=== PATIENT | female | born 1965 | race Caucasian/White ===

== ENCOUNTER 2017-03-29 14:20 | Emergency (ER) | payer OTHER ==
[2017-03-29] MEDS ORDERED: Proparacaine 0.5% Opth 15 ML BOT ONE (15:16)
[2017-03-29] MEDS ORDERED: Fluorescein Opthalmic Strip ONE (15:16)
--- NOTE | 2017-03-29 15:22 | CT ---
CT FACE NONCONTRAST: Date: 03/29/17 HISTORY: Right facial injury. FINDINGS: The mandible, globes, and zygomatic arches are intact. No displaced fractures are apparent. Visualize d paranasal sinuses remain well aerated. IMPRESSION: No significant abnormalities are demonstrated. POS: H
--- NOTE | 2017-03-31 15:31 | EKG ---
Test Reason : SYNCOPE Blood Pressure : / mmHG Vent. Rate : 078 BPM Atrial Rate : 078 BPM P-R Int : 160 ms QRS Dur : 078 ms QT Int : 380 ms P-R-T Axes : 065 060 024 degrees QTc Int : 433 ms Normal sinus rhythm with sinus arrhythmia Nonspecific ST and T wave abnormality Abnormal ECG Confirmed by YOLANDA NOEL, ADI ([id number]), movie editor RELL KERR ([id number]) on 03/31/2017 3:31:08 PM Referred By: DR ALLRED Confirmed By:ADI GUERRERO MD
== END 2017-03-29 15:50 | disposition home or self-care (01) ==
LOC: ERS 14:20
DX: H11.31 Conjunctival hemorrhage, right eye (principal); R55 Syncope and collapse; F32.9 Major depressive disorder, single episode, unspecified; F17.210 Nicotine dependence, cigarettes, uncomplicated
CPT/HCPCS: 70486; 93005

== ENCOUNTER 2017-10-11 11:46 | Outpatient (CLI) | payer BC | END 2017-10-11 11:47 | disposition home or self-care (01) | LOC: BICRAD 11:46 | PROVIDERS: ATTEND Physician Assistant | DX: R05 Cough (principal) | CPT/HCPCS: 36415; 71046; 85025 ==

== ENCOUNTER 2018-12-16 06:56 | Outpatient (CLI) | payer BC ==
--- NOTE | 2018-12-16 10:29 | ULT ---
PELVIC ULTRASOUND: TECHNIQUE: Transabdominal and endovaginal imaging of the pelvis is performed. FINDINGS: Uterus is identified, without myometrial masses. Uterus measures 5.6 x 3.3 x 4.8 cm. Endometrium abernathy s a homogeneous echotexture measuring 0.4 cm. The left ovary has a normal echotexture measuring 1.4 x 1.7 x 0.9 cm. Right ovary is not appreciated. No masses or fluid in the right adnexa. IMPRESSION: Unremarkable pelvic ultrasound. POS: TIAN
== END 2018-12-16 06:57 | disposition home or self-care (01) ==
LOC: BICULT 06:56
PROVIDERS: ATTEND Physician Assistant
DX: R10.2 Pelvic and perineal pain (principal)
CPT/HCPCS: 76856

== ENCOUNTER 2018-12-26 07:34 | Outpatient (CLI) | payer BC ==
--- NOTE | 2018-12-26 11:29 | CT ---
CT CHEST AND ABDOMEN AND PELVIS WITH CONTRAST: Date: 12/26/18 Multiplanar reconstruction. INDICATION: Disease of anus, rectum. Recent colonoscopy revealed malignancy according to history given by jerome ace. FINDINGS: CT CHEST: The lung amezquita are clear of infiltrate. No effusion. Review of the lung amezquita reveals scattered nonspecific pulmonary nodules. On the right, 5 mm nodule in the right apical region, image 14, axial. 3 mm nodule right upper lobe, image 20. 4 mm nodule right lower lobe, image 35. 4 mm nodule laterally on right, image 40. 5 mm nodule, image 42. On the left, small 4 mm nodule posterior left lower lobe, image 36. The mediastinum is unremarkable. No adenopathy. Thyroid unremarkable. Osseous structures unremarkable . Axilla unremarkable. IMPRESSION: There are numerous nonspecific pulmonary nodules. Recommend follow-up noncontrast CT chest in 6 month s to assess stability. CT ABDOMEN AND PELVIS: Tiny cystic lesion of the anterior superior liver measuring in the 5-6 mm range. Liver, spleen, and p ancreas otherwise unremarkable. Stomach and duodenum unremarkable. Adrenal glands normal. Kidneys unremarkable. Small bowel loops appear normal. Colon unremarkable. There are scattered diverticula in the sigmoid and mild mural thickening, althoug h the sigmoid is poorly distended and evaluation is suboptimal. Aorta is normal caliber. No adenopathy or free fluid. Images through the pelvis show unremarkable uterus and adnexa. The urinary bladder is minimally diste nded. Osseous structures unremarkable. IMPRESSION: Unremarkable CT abdomen and pelvis. POS: TPC
== END 2018-12-26 07:35 | disposition home or self-care (01) ==
LOC: CT 07:34
PROVIDERS: ATTEND Internal Medicine
DX: K62.89 Other specified diseases of anus and rectum (principal); R91.8 Other nonspecific abnormal finding of lung field
CPT/HCPCS: 71260; 74177

== ENCOUNTER 2019-01-10 13:15 | Outpatient (CLI) | payer BC ==
[~2019-01-10 13:15] MED LIST: Gadobenate Dimeglumine 529 MG/1 ML (20ML VIAL) ONE
--- NOTE | 2019-01-13 11:13 | MRI ---
MRI PELVIS WITHOUT AND WITH CONTRAST: Date: 01/10/19 HISTORY: Rectal cancer. TECHNIQUE: Multiplanar, multisequence MR images were obtained of the pelvis without and with IV contrast. FINDINGS: There is a circumferential mass in the rectum measuring approximately 4.4 cm in length. This is appro ximately 5.0 cm from the anal verge. This mass appears full thickness within the rectal wall and ther e is a small amount of invasion in the left perirectal fat. This extension is approximately 1-2 mm. T he mass does not invade or involve the mesorectal fascia. The closest margin of the tumor to the meso rectal fascia is along the posterior aspect in the presacral space, but a fat plane is still present between the sacrum and the mass. Three small lymph nodes are seen in the perirectal fat on the left a nd one lymph node is seen on the right. The largest lymph node on the left measures 9 mm in size. Scattered diverticula are seen in the colon. No marrow signal abnormality is present. IMPRESSION: Rectal cancer as above. This appears to be a T3b, N2a rectal cancer. POS: TPC
== END 2019-01-10 13:16 | disposition home or self-care (01) ==
LOC: SCSMRI 13:15
PROVIDERS: ATTEND Specialist
DX: C20 Malignant neoplasm of rectum (principal)
CPT/HCPCS: 72197; A9577

== ENCOUNTER 2019-01-27 08:11 | Day surgery (SDC) | payer BC ==
[2019-01-24 09:31] VITALS: BMI 21.6
[2019-01-27] MEDS ORDERED: Ketorolac Tromethamine 30 MG/ML VIAL ONE (08:35)
[2019-01-27 08:54] LABS: #Basophils 0.1 thou/uL (0.0-0.2); #Eosinphils 0.4 thou/uL (0.0-0.7); #Lymphocytes 2.1 thou/uL (1.20-3.40); #Monocytes 0.5 thou/uL (0.11-0.59); #Neutrophils 4.6 thou/uL (1.40-6.50); %Eosinophils 5.5 % (0.0-10.0); %Lymphocytes 27.4 % (21.0-51.0); %Monocytes 5.9 % (0.0-10.0); %Neutrophils 60.2 % (42.0-75.0); Hemoglobin 14.2 g/dL (12.0-16.0); Mean Corpuscular HGB CONC 33.9 g/dL (32.0-36.0); Mean Corpuscular Hemoglobin 32.5 pg (27.0-31.0); Mean Corpuscular Volume 95.9 fL (78.0-98.0); Mean Platelet Volume 6.6 fL (7.4-10.4); Platelet Count 258 thou/uL (130-400); RBC Distribution Width 11.5 % (11.5-14.5); Red Blood Cell (RBC) Count 4.37 mill/uL (4.20-5.40); White Blood Cell (WBC) Count 7.6 thou/uL (4.8-10.8)
[2019-01-27] MEDS ORDERED: Scopolamine 1.5 mg/72 hour Patch ONE (09:10)
[2019-01-27 09:15] LABS: Anion Gap 10 mmol/L (10-20); BUN (Urea Nitrogen) 9 mg/dL (9.8-20.1); Calc. Creatinine Clearance 82 mL/min (70-130); Calcium 9.9 mg/dL (7.8-10.44); Carbon Dioxide 24 mmol/L (22-29); Chloride 110 mmol/L (98-107); Estimated GFR-MDRD 90; Glucose 102 mg/dL (70-105); Sodium 140 mmol/L (136-145)
[2019-01-27] MEDS ORDERED: Ondansetron PF 4 MG/2 ML Vial ONE (09:44)
[2019-01-27] MEDS ORDERED: PHENYLEPHRINE-NS 100 MCG/ML 10 ML SYRINGE ONE (09:44)
[2019-01-27] MEDS ORDERED: PROPOFOL 200 MG/20 ML VIAL ONE (09:44)
[2019-01-27] MEDS ORDERED: Glycopyrrolate 0.2 MG/ML 5 ML SYRINGE ONE (09:44)
[2019-01-27] MEDS ORDERED: Lidocaine 1% w/Epinephrine 1:100K 20 ML VIAL ONE (10:38)
[2019-01-27] MEDS ORDERED: Bupivacaine 0.25% HCL 30 ML VIAL ONE (10:38)
[2019-01-27] MEDS ORDERED: Midazolam HCl 2 mg/2 ml Vial ONE (10:55)
[2019-01-27] MEDS ORDERED: Fentanyl 100 MCG/2 ML VIAL ONE (10:55)
--- NOTE | 2019-01-27 12:45 | RAD ---
XR Chest 1 View Portable History: MediPort placement Comparison: Radiograph 2005 Findings: Port catheter is in place with tip at the inferior SVC. No pneumothorax. Mild scarring in the lung bases. Impression: Uncomplicated port catheter placement.
--- NOTE | 2019-01-27 16:22 | OP ---
DATE OF PROCEDURE: 01/27/2019 PREOPERATIVE DIAGNOSIS: Rectal cancer. POSTOPERATIVE DIAGNOSIS: Rectal cancer. OPERATION PERFORMED: Placement of right subclavian low-profile power compatible MediPort. ANESTHESIA: General with laryngeal mask airway. INDICATIONS: The patient is a 53-year-old white female. She is recently diagnosed with rectal cancer. She appears to have locally advanced cancer, and therefore, chemotherapy and radiation has been recommended. MediPort placement is recommended for chemotherapy administration. DESCRIPTION OF OPERATION: Informed consent was obtained. The patient was taken to the operating room where total intravenous anesthesia was obtained with the patient in supine position. Right periclavicular area was prepped with ChloraPrep and draped in sterile fashion. Local anesthetic was infiltrated and a large-gauge needle was passed under the clavicle in the subclavian vein. Guidewire was passed through the needle and fluoroscopically confirmed to enter the superior vena cava. Additional local anesthetic was infiltrated and transverse incision was created based on needle insertion site. A subcutaneous pocket was dissected inferiorly. Introducer dilator was passed over the guidewire under fluoroscopic guidance. The guidewire and dilator were removed, and the catheter was passed through the introducer. The tip of the catheter was positioned at the atriocaval junction and the catheter was trimmed to the appropriate length and secured to the locking hub of the MediPort. The port was then placed in the subcutaneous pocket where it was secured to the pectoral fascia with 2 interrupted sutures of 3-0 Prolene. The incision was then closed in layers with 3-0 and 4-0 Monocryl. Additional local anesthetic was infiltrated. The port was cannulated with a Ward needle and it aspirated blood freely and was flushed with heparinized saline. Dermabond was placed externally on the skin incision. There were no complications. Blood loss was negligible. The patient tolerated the procedure well and was taken to recovery room in stable condition. FINDINGS: A right subclavian low-profile port was placed uneventfully. The port site was selected due to her body habitus. There was no blood loss and no complications during the procedure. Fluoroscopy was used throughout the procedure. Job ID: [id number]
== END 2019-01-27 13:35 | disposition home or self-care (01) ==
LOC: SDC 08:11
PROVIDERS: ATTEND Specialist
PROC: 02HV33Z Insertion of Infusion Device into Superior Vena Cava, Percutaneous Approach (ICD-10-PCS; principal; 2019-01-27)
DX: C20 Malignant neoplasm of rectum (principal); Z79.899 Other long term (current) drug therapy; Z88.2 Allergy status to sulfonamides; Z88.8 Allergy status to other drugs, medicaments and biological substances
CPT/HCPCS: 71045; 80048; 85025; C1788; J0131; J0690; J1642; J1885; J2250; J2405; J2704; J3010; S0020

== ENCOUNTER 2019-09-11 05:18 | Outpatient (CLI) | payer BC, OTHER ==
[2019-09-11 11:26] LABS: Hemoglobin 12.8 g/dL (12.0-16.0); Mean Corpuscular HGB CONC 34.4 g/dL (32.0-36.0); Mean Corpuscular Hemoglobin 36.2 pg (27.0-31.0); Mean Platelet Volume 6.7 fL (7.4-10.4); Platelet Count 173 thou/uL (130-400); RBC Distribution Width 12.7 % (11.5-14.5); Red Blood Cell (RBC) Count 3.54 mill/uL (4.20-5.40); White Blood Cell (WBC) Count 3.1 thou/uL (4.8-10.8)
[2019-09-11 11:45] LABS: Hemoglobin A1c 5.3 % (4.0-6.0)
[2019-09-11 12:11] LABS: Anion Gap 13 mmol/L (10-20); BUN (Urea Nitrogen) 9 mg/dL (9.8-20.1); Calc. Creatinine Clearance 0 mL/min (70-130); Calcium 9.8 mg/dL (7.8-10.44); Carbon Dioxide 28 mmol/L (22-29); Chloride 103 mmol/L (98-107); Estimated GFR-MDRD 80; Glucose 109 mg/dL (70-105); Potassium 3.5 mmol/L (3.5-5.1); Sodium 140 mmol/L (136-145)
[2019-09-12 12:51] LABS: SARS-CoV-2 MS2 Positive; SARS-CoV-2 N Gene Negative; SARS-CoV-2 S Gene Negative; SARS-CoV-2 orf1ab Negative
== END 2019-09-11 05:19 | disposition home or self-care (01) ==
LOC: LABBT 05:18
PROVIDERS: ATTEND Specialist
DX: Z01.812 Encounter for preprocedural laboratory examination (principal); Z11.59 Encounter for screening for other viral diseases; C20 Malignant neoplasm of rectum
CPT/HCPCS: 80048; 83036; 85027; 87635; U0003

== ENCOUNTER 2019-09-11 10:30 | Inpatient (IN) | payer BC ==
[2019-09-15] MEDS ORDERED: Meperidine HCl/PF 25 MG/ML VIAL SLOW IVP PRN (10:25)
[2019-09-15] MEDS ORDERED: Ondansetron HCl/PF 4 MG/2 ML Vial IVP PRN ×2 (10:25→17:05)
[2019-09-15] MEDS ORDERED: HYDROmorphone 2 MG/ML VIAL SLOW IVP PRN (10:25)
[2019-09-15] MEDS ORDERED: Promethazine HCl 25 MG/ML VIAL SLOW IVP PRN ×2 (10:25→17:05)
[2019-09-15] MEDS ORDERED: Promethazine HCl 25 MG/ML VIAL IM PRN ×3 (10:25→20:47)
[2019-09-15] MEDS ORDERED: Acetaminophen 500 MG TAB ONE (10:59)
[2019-09-15] MEDS ORDERED: Ketorolac Tromethamine 30 MG/ML VIAL ONE (10:59)
[2019-09-15] MEDS ORDERED: Gabapentin 300 MG CAP ONE (11:01)
[2019-09-15] MEDS ORDERED: Famotidine/PF 20 mg/2ml Vial ONE ×2 (11:01→11:50)
[2019-09-15] MEDS ORDERED: Dexamethasone 4 mg/ml Vial ONE (11:10)
[2019-09-15] MEDS ORDERED: Fentanyl 100 MCG/2 ML VIAL ONE ×4 (11:10→18:35)
[2019-09-15] MEDS ORDERED: Midazolam HCl 2 mg/2 ml Vial ONE (11:10)
[2019-09-15] MEDS ORDERED: Bupivacaine HCl 0.5%/Epinephrine 1:200,000/PF 30 ml Vial ONE (11:33)
[2019-09-15] MEDS ORDERED: Ondansetron PF 4 MG/2 ML Vial ONE (11:33)
[2019-09-15] MEDS ORDERED: Glycopyrrolate 0.2 MG/ML 5 ML SYRINGE ONE (11:33)
[2019-09-15] MEDS ORDERED: Lidocaine 1% PF 5 ML VIAL ONE (11:33)
[2019-09-15] MEDS ORDERED: PROPOFOL 200 MG/20 ML VIAL ONE (11:33)
[2019-09-15] MEDS ORDERED: Rocuronium Bromide 10 MG/ML (10ML VIAL) ONE (11:33)
[2019-09-15] MEDS ORDERED: Dexamethasone 20 MG/5 ML VIAL ONE ×2 (11:33)
[2019-09-15] MEDS ORDERED: PHENYLEPHRINE-NS 100 MCG/ML 10 ML SYRINGE ONE (11:33)
[2019-09-15] MEDS ORDERED: Bupivacaine 0.25% HCL 30 ML VIAL ONE (12:08)
[2019-09-15] MEDS ORDERED: Methylene Blue 50 MG/10 ML AMPUL ONE (12:08)
[2019-09-15] MEDS ORDERED: Bupivacaine PF 0.5% 30 ML VIAL ONE (12:08)
[2019-09-15] MEDS ORDERED: Lidocaine 1% w/Epinephrine 1:100K 20 ML VIAL ONE (12:08)
[2019-09-15] MEDS ORDERED: Meperidine HCl/PF 25 MG/ML VIAL ONE (18:10)
--- NOTE | 2019-09-15 18:47 | OP ---
DATE OF PROCEDURE: 09/15/2019 PREOPERATIVE DIAGNOSES: 1. Pelvic pain. 2. Rectal cancer. POSTOPERATIVE DIAGNOSES: 1. Pelvic pain. 2. Rectal cancer. PROCEDURES PERFORMED: Robotic-assisted total laparoscopic hysterectomy, bilateral salpingo-oophorectomy. ANESTHESIA: General endotracheal. PASTRY SOUS CHEF SURGEON: Aida Gannon PA-C ESTIMATED BLOOD LOSS: 20 mL. COMPLICATIONS: None. DRAINS: Nixon catheter. PATHOLOGY: Uterus, cervix, bilateral fallopian tubes and ovaries. FINDINGS: Small 6 cm uterus, normal-appearing cervix, fallopian tubes, and ovaries bilaterally. Bladder and ureters intact on back filling of the bladder and excellent hemostasis. DESCRIPTION OF PROCEDURE: Patient was taken to the operating room, where general anesthesia was obtained without difficulty. Patient was prepped and draped in a sterile fashion in a dorsal lithotomy position. A speculum was placed in the vagina and a Nixon catheter placed in the bladder. Anterior lip of the cervix was grasped with a single-tooth tenaculum. The uterus was then sounded to 7 cm and cervix was progressively dilated with Girma dilators. The SUZETTE manipulator was assembled with a 6 cm tip and a 3 cm colpotomizer ring. The SUZETTE manipulator was inserted into the uterus, colpotomizer ring advanced to fit snugly around the cervix. The speculum and tenaculum were removed out of vagina. Legs were placed in low lithotomy. Attention was turned to the abdomen. Approximately 3 cm superior to the umbilicus was marked for the camera port. A 12-mm skin incision was made and the Veress needle was passed into the abdomen noting an opening pressure of 2 mmHg. Pneumoperitoneum was obtained. Veress needle was removed. The 12 mm trocar and sleeve were advanced into the abdomen and confirmed placement with robotic camera. Steep Trendelenburg was obtained. Right and left lower quadrant 8 mm robotic trocars were placed under direct visualization after making a skin incision. A right upper quadrant 11 mm port was also placed under direct visualization after making skin incision. The robot was then docked. The right robotic arm contained monopolar scissors. The left robotic arm contained a fenestrated bipolar. The right fallopian tube was grasped and elevated. The infundibulopelvic ligament was clamped across with the bipolar and cauterized and incised with the scissors. The mesovarium was sequentially cauterized with a fenestrator and incised with the scissors down to the round ligament that was cauterized in the midportion and incised and the posterior leaf of the broad ligament was incised down to the level of the uterosacral. The retroperitoneum was dissected off the uterine vessels. The anterior leaf of the broad ligament was incised down to the level of the bladder flap. There was some scarring of the bladder to the lower uterine segment and this was layered out carefully undermining to ensure clear window and then incising with the scissors and cautery. The vessels were cauterized on the right side. Attention was turned to the left side. Left fallopian tube was grasped and elevated. The IP ligament was cauterized multiple times and incised and the round ligament was cauterized and incised in the midportion. The posterior leaf of the broad ligament was incised and the ureter was identified in the left side in the pelvic sidewall. The anterior leaf of the broad ligament was also incised. The bladder flap was then further created continuing carefully undermined and with the use of back filling with saline to note the limitations of the bladder. The bladder was approached laterally to find the area which was a clear window underneath the adhesion to the lower uterine segment and this allowed for more effective and single layering. The pubocervical fascia was then scored upon once the bladder was taken down below the level of the colpotomizer ring and further adventitia was dissected down below the level of the colpotomizer ring with the back end of the scissors as well as bluntly with the fenestrated. Anterior vessels were skeletonized and cauterized on the left side. Anterior colpotomy was performed. Lateral incisions on the vessels were made at the pedicle and hemostasis was noted. The cardinal ligament and posterior leaf were also incised around the ring and the uterus was placed into the vagina. The vaginal cuff was irrigated. Scissors were traded out for needle drivers. Hemostasis was achieved. The Stratafix barbed suture was used to close the cuff in a running fashion incorporating vaginal mucosa and posterior peritoneum in each bite and hemostasis was noted to be excellent. This was run back for a second layer. Irrigation of the pedicles and cuff were performed. Hemostasis was noted to be excellent. Bladder was backfilled one additional time and noted to have no inadvertent injury. All instruments were removed out of the abdomen and the robot was undocked. At this point, Dr. Rice entered the room to perform his portion of the procedure. Job ID: [id number]
[2019-09-15] MEDS ORDERED: hydrALAZINE 20 MG/ML VIAL SLOW IVP PRN (20:47)
[2019-09-15] MEDS ORDERED: Morphine 2 MG/ML VIAL SLOW IVP PRN (20:47)
[2019-09-15] MEDS ORDERED: Ondansetron PF 4 MG/2 ML Vial IVP PRN (20:47)
[2019-09-15] MEDS ORDERED: Morphine 4 MG/ML VIAL SLOW IVP PRN (20:47)
[2019-09-15] MEDS: Famotidine/PF 20 mg/2ml Vial SLOW IVP SCH (21:15)
[2019-09-15] MEDS: Enoxaparin Sodium 40 MG/0.4 ML SYRINGE SC SCH (21:15)
[2019-09-15] MEDS: D5 1/2 NS w/20 mEq KCL 1,000 ML IV SCH (21:18)
[2019-09-15] MEDS: Famotidine 20 MG TAB PO SCH (21:19)
[2019-09-16] MEDS: Ketorolac Tromethamine 30 MG/ML VIAL IVP SCH ×5 (00:40→23:46)
[2019-09-16] MEDS: D5 1/2 NS w/20 mEq KCL 1,000 ML IV SCH ×3 (05:37→14:34)
[2019-09-16 06:13] LABS: Mean Corpuscular HGB CONC 33.9 g/dL (32.0-36.0); Mean Corpuscular Hemoglobin 35.7 pg (27.0-31.0); Mean Platelet Volume 6.6 fL (7.4-10.4); Platelet Count 148 thou/uL (130-400); RBC Distribution Width 12.4 % (11.5-14.5); Red Blood Cell (RBC) Count 2.81 mill/uL (4.20-5.40); White Blood Cell (WBC) Count 4.9 thou/uL (4.8-10.8)
[2019-09-16 06:14] LABS: #Lymphocytes 0.2 thou/uL (1.20-3.40); #Monocytes 0.3 thou/uL (0.11-0.59); #Neutrophils 4.4 thou/uL (1.40-6.50); %Eosinophils 0.2 % (0.0-10.0); %Lymphocytes 3.6 % (21.0-51.0); %Neutrophils 90.2 % (42.0-75.0)
[2019-09-16 06:29] LABS: Anion Gap 10 mmol/L (10-20); BUN (Urea Nitrogen) 9 mg/dL (9.8-20.1); Calc. Creatinine Clearance 74 mL/min (70-130); Carbon Dioxide 25 mmol/L (22-29); Chloride 107 mmol/L (98-107); Estimated GFR-MDRD 83; Glucose 152 mg/dL (70-105); Potassium 4.2 mmol/L (3.5-5.1); Sodium 138 mmol/L (136-145)
--- NOTE | 2019-09-16 07:17 | PDOC.GSPN ---
Surgery Progress Note: Subj - Subjective Patient reports: pain well controlled (some minor pain on movement and palpation ), voiding w/o difficulty, no bowel movement, no flatus (despite walking around floor twice) Narrative: Mrs. Trejo is doing well on post-op day 1. Her current main concern is a dry mouth. Surgery Progress Note: Obj - Vital signs Vital signs: Vital Signs - Most Recent Temp Pulse Resp BP Pulse Ox 98.1 F 56 L 16 94/56 L 100 09/16/19 03:02 09/16/19 03:02 09/16/19 03:02 09/16/19 03:02 09/16/19 03:02 - Physical Exam General: no distress, other (mild pain on movement) Cardiovascular: regular rate and rhythm Respiratory: clear to auscultation Abdomen: soft, nondistended, decreased bowel sounds, appropriately tender Hernia: none Psychiatric: memory intact, oriented to time, oriented to person, oriented to place, speech is normal Wound: dressing clean,dry,intact, healing well, other (ileostomy bag contents contain small amounts of blood without stool) Surgery Progress Note: Results - Labs Result Diagrams: 09/16/19 05:46 09/16/19 05:46 Lab results: Laboratory Results - last 24 hr 09/16/19 09/16/19 05:46 05:46 WBC 4.9 RBC 2.81 L Hgb 10.0 L Hct 29.6 L MCV 105.0 H MCH 35.7 H MCHC 33.9 RDW 12.4 Plt Count 148 MPV 6.6 L Neutrophils % 90.2 H Lymphocytes % 3.6 L Monocytes % 6.0 Eosinophils % 0.2 Basophils % 0.0 Neutrophils # 4.4 Lymphocytes # 0.2 L Monocytes # 0.3 Eosinophils # 0.0 Basophils # 0.0 Sodium 138 Potassium 4.2 Chloride 107 Carbon Dioxide 25 Anion Gap 10 BUN 9 L Creatinine 0.73 Estimated GFR (MDRD) 83 Glucose 152 H Calcium 9.0 Surgery Progress Note: A/P - Problem (1) S/P colectomy Current Visit: Yes Status: Acute (2) S/P ileostomy Current Visit: Yes Code(s): Z93.2 - ILEOSTOMY STATUS Status: Acute Assessment and Plan: doing well. minimal pain. continue clears. possibly home tomorrow if she continues to do well. ostomy training today. - Plan Plan: Patient will continue to be monitored. Advance to clear diet when patient achieves flatus. Ambulation is encouraged via walking program with PT. Continue DVT prophylaxis, pain medications for comfort.
[2019-09-16] MEDS: Famotidine/PF 20 mg/2ml Vial SLOW IVP SCH ×2 (08:51→21:15)
[2019-09-16] MEDS: Famotidine 20 MG TAB PO SCH ×2 (08:51→21:15)
[2019-09-16] MEDS ORDERED: HYDROcodone/Acetaminophen 7.5/325 mg Tablet PO PRN ×2 (17:08)
[2019-09-16] MEDS: Enoxaparin Sodium 40 MG/0.4 ML SYRINGE SC SCH (21:14)
[2019-09-16] MEDS ORDERED: Acetaminophen 325 MG TAB PO PRN (23:18)
[2019-09-16] MEDS ORDERED: Acetaminophen/Codeine 30-300mg Tablet PO PRN ×2 (23:18)
[2019-09-16 23:54] VITALS: BMI 22.4
[2019-09-17] MEDS: D5 1/2 NS w/20 mEq KCL 1,000 ML IV SCH (03:05)
[2019-09-17] MEDS: Ketorolac Tromethamine 30 MG/ML VIAL IVP SCH (05:29)
--- NOTE | 2019-09-17 07:25 | PDOC.GSPN ---
Surgery Progress Note: Subj - Subjective Patient reports: had a bowel movement, tolerating liquids well, voiding w/o difficulty, still having pain (She feels that her pain is primarily from the wounds healing.) Narrative: Mrs. Trejo is a 53 y/o F 2 days post-op of the lower anterior resection of the rectum and colon and a hysterectomy. She reports that she feels that she is doing well. Surgery Progress Note: Obj - Vital signs Vital signs: Vital Signs - Most Recent Temp Pulse Resp BP Pulse Ox 97.4 F L 60 16 93/60 98 09/17/19 02:58 09/17/19 02:58 09/17/19 02:58 09/17/19 02:58 09/17/19 02:58 - Physical Exam General: well developed, well nourished Cardiovascular: regular rate and rhythm Respiratory: clear to auscultation, normal expansion, normal respiratory effort , breath sounds present Abdomen: soft, nondistended, positive bowel sounds, appropriately tender (upon palpation. Feels that most pain is coming from the wounds and not as much inside the abdomen.), other (wounds are dry, clean, and intact. ileostomy bag placement is intact.) Psychiatric: memory intact, speech is normal Surgery Progress Note: Results - Labs Result Diagrams: 09/16/19 05:46 09/16/19 05:46 Lab results: CBC/BMP were from yesterday. Surgery Progress Note: A/P - Problem (1) S/P colectomy Current Visit: Yes Status: Acute (2) S/P ileostomy Current Visit: Yes Code(s): Z93.2 - ILEOSTOMY STATUS Status: Acute - Plan Plan: Patient is doing well post-op day 2 from a lower anterior resection of the rectum and colon and a hysterectomy. She had mild postoperative anemia yesterday. She should have another CBC to ensure there is no downward trend of hemoglobin indicative of bleeding. Ambulation is encouraged. Assuming there is no indication of bleeding, patient should be clear to go home.
[2019-09-17 09:25] LABS: #Lymphocytes 0.5 thou/uL (1.20-3.40); #Monocytes 0.3 thou/uL (0.11-0.59); #Neutrophils 4.2 thou/uL (1.40-6.50); %Basophils 0.2 % (0.0-1.0); %Eosinophils 0.5 % (0.0-10.0); %Lymphocytes 10.7 % (21.0-51.0); %Monocytes 5.6 % (0.0-10.0); %Neutrophils 82.9 % (42.0-75.0); Hemoglobin 9.3 g/dL (12.0-16.0); Mean Corpuscular HGB CONC 32.1 g/dL (32.0-36.0); Mean Corpuscular Hemoglobin 33.7 pg (27.0-31.0); Mean Platelet Volume 6.4 fL (7.4-10.4); Platelet Count 169 thou/uL (130-400); RBC Distribution Width 12.6 % (11.5-14.5); Red Blood Cell (RBC) Count 2.77 mill/uL (4.20-5.40)
[2019-09-17] MEDS ORDERED: Acetaminophen/Codeine 120-12MG/5 ML UDCUP PO PRN ×2 (09:57→09:58)
[2019-09-17] MEDS: Famotidine/PF 20 mg/2ml Vial SLOW IVP SCH (15:45)
[2019-09-17 16:00] VITALS: TEMP 98.1
[2019-09-17 16:02] VITALS: BP 101/65
--- NOTE | 2019-09-18 13:12 | DIS ---
DATE OF ADMISSION: 09/15/2019 DATE OF DISCHARGE: 09/17/2019 ADMISSION DIAGNOSIS: Rectal cancer. DISCHARGE DIAGNOSIS: Rectal cancer. OPERATION/PROCEDURES PERFORMED: Robotic-assisted total laparoscopic hysterectomy and bilateral salpingo-oophorectomy performed by Dr. Alicia Morris, laparoscopic-assisted low anterior resection of rectal cancer with splenic flexure mobilization and ileostomy creation performed by myself. ADMISSION HISTORY: The patient is a 53-year-old white female. She was diagnosed with rectal cancer in December 2018. She underwent a lengthy course of neoadjuvant therapy with chemoradiation and chemotherapy. She presents at this time for definitive excision of her rectal cancer. Her cancer is quite low within the rectum and for this reason, hysterectomy has been requested to be performed at the time of the surgery to assist with the low pelvic dissection. HOSPITAL COURSE: The patient presented to the hospital on the day of her surgery. She had undergone outpatient bowel prep. She underwent an uneventful robotic hysterectomy per Dr. Morris. I subsequently performed an uneventful very low anterior resection of her rectal cancer. She had an uneventful postoperative course. She was started on clear liquids right after surgery. Her ileostomy was functioning by postoperative day #1. She had a mild drop in her hemoglobin from 12.8 preoperatively down to 10.0. This stabilized prior to discharge. She was hemodynamically stable and tolerated full liquid diet prior to discharge. She had negligible pain and was voiding well. She was felt to be stable for discharge home and was therefore discharged on September 16, postoperative day #2. She was given a prescription for tramadol to use for pain as necessary, although she was having essentially no pain prior to her discharge. She will follow up with myself in 2 weeks. Home health nursing has been arranged to help with ostomy care. Job ID: [id number]
--- NOTE | 2019-09-18 13:12 | OP ---
DATE OF PROCEDURE: 09/15/2019 PREOPERATIVE DIAGNOSIS: Rectal cancer, status post neoadjuvant chemoradiation. POSTOPERATIVE DIAGNOSIS: Rectal cancer, status post neoadjuvant chemoradiation. PROCEDURES PERFORMED: Laparoscopic hand assisted low anterior resection with splenic flexure mobilization and ileostomy creation. ANESTHESIA: General endotracheal. INDICATIONS: The patient is a 53-year-old white female. She was diagnosed with rectal cancer. This was a fairly low rectal cancer that was estimated to be between 5 and 7 cm from the anal verge. She underwent neoadjuvant chemoradiation with obvious improvement and shrinkage of the malignancy. She is taken to the operating at this time for definitive excision. Because of the local nature of the malignancy and the potential for metastasis, I have requested a robotic total abdominal hysterectomy with bilateral salpingo-oophorectomy to be performed under the same anesthetic. This was performed by Dr. Ailcia Morris, uneventfully and at the completion of her portion of the operation, the patient was in stable condition. DESCRIPTION OF OPERATION: Informed consent had been obtained. The patient was already in the operating suite with robotic ports in place. I had marked the location of the ports for Dr. Morris and she had placed them accordingly. There was a supraumbilical port, a left lower quadrant port, a right lower abdominal port and Dr. Morris, who also placed an assistant manager airside operations port in the supraumbilical right upper quadrant. The patient was placed into a Trendelenburg position. The area was examined. There was no evidence of any bleeding and the area of the hysterectomy was apparent. The small bowel was swept out of the pelvis. I extended the left lower quadrant incision into an 8 cm oblique incision. Muscle splitting was used to gain access into the abdominal cavity and the Adelfo wound retractor was passed through this as well as the GelPort on top. The sigmoid colon was identified and the lateral attachments were taken down from the pelvic wall and in an ascending fashion by incising the white line of Toldt. The left colon was mobilized medially along with the sigmoid colon. The rectosigmoid was elevated and dissection was begun in the mesentery at the sacral promontory. I identified the inferior mesenteric artery, but did not divide at this point. Dissection through the mesentery was carried out using the LigaSure device. The left ureter was identified and swept inferiorly. Dissection was carried inferiorly in the avascular plane to carry out a total mesorectal excision. As dissection was carried deeply in the pelvis, I was able to identify areas of thickening within the rectum that felt consistent with the shrunk rectal cancer. I continued dissecting inferiorly until I identified the blue tattoo on the rectum, which felt like it was distal to the area of the thickening in the rectum. I carefully dissected through the mesorectum up to the rectal wall and the rectum was cleared circumferentially at this level. It was divided with two fires of the blue load of the [place] stapler. I then checked the colon to see what would reach down into the pelvis. Unfortunately, this sigmoid colon proved to be very thickened and fibrotic. The patient did have a somewhat redundant colon and I was concerned that perhaps this segment of the colon had been down within the pelvis and had absorb some of the radiation. Nonetheless, the area that reached into the pelvis was not appropriate for anastomosis. I therefore turned my attention to the splenic flexure. I continued to mobilization of the left colon up around the splenic flexure until I had an appropriate splenic flexure mobilization with appropriate laxity. At this point, the segment of colon that reach down for an anastomosis had a normal thickness and consistency. This area was marked and the bowel was delivered externally through the GelPort and the wound retractor. Once I had made sure that all of the mesentery was taken down using the LigaSure, I utilized segregated instruments and towel off the area before the bowel was open. Of note, I had divided the DNAIEL as a high ligation to optimize my mobility during the course of mobilization. The colon was opened and I utilized the EEA sizers to determine the diameter of the colon. I selected a 28 mm stapler as the colon was still relatively narrow at this level. The anvil of the stapler was passed through the enterotomy and brought out several centimeters proximally antimesenteric. The colotomy was excluded in continuity with the sigmoid colon and the rectum with a final firing of the [place] stapler. This segment of the colon was passed off the field as well as all instruments were utilized while the bowel was open. Gloves were changed. Attention was returned to the colon. The post of the anvil was cleansed with Betadine. I placed a pursestring suture of 2-0 Prolene around the base. This segment of the colon was then dropped down into the abdomen. From below, the anus was dilated gently and sizers followed by a 28 mm stapler was passed through the anus up to the rectal stump. This was very close to the anus was estimated to be 3 or 4 cm at most. Under direct vision, the spike was advanced through the rectum and mated to the anvil. The two segments were approximated and anastomosed by firing the stapler. The donuts were inspected and found to be intact and the distal donut was submitted as an additional specimen. The anastomosis was leak tested with air insufflation under water with no evidence of leak. All irrigant was aspirated. The area of the splenic flexure mobilization was inspected and found to be hemostatic. Attention was turned to the ileum. I identified the ileum about 30 cm from the ileocecal valve and grasped this with a grasper. I then created the ileostomy opening in the right lower quadrant with typical cruciate incisions and dilatation and then delivered the appropriate segment of the ileum through the opening and secured externally with a suture through the mesenteric opening. The proximal end was marked as well. All ports and instruments were removed. The abdomen was cleansed and all laparoscopic instrumentation passed off the field. The closing tray was utilized from that point forward. Gowns and gloves were changed. The abdomen was tiled off with sterile towels. The fascia at the left lower quadrant incision was closed with #1 PDS in 2 layers. The wound was then copiously irrigated with 2 L of saline. The remainder of the wound was closed in layers with 3-0 and 4-0 Monocryl. Additional local anesthetic was infiltrated using 1% lidocaine with epinephrine (as the patient had already had a tap block with Marcaine). The fascial defect at the other two port sites had been closed before laparoscopy was terminated with 0 Vicryl suture using a GraNee needle. The skin edges were approximated with 4-0 Monocryl subcuticular suture. Dermabond was then placed over each of these three incisions. Once the glue was dried, attention was turned to the ileostomy. I replaced the suture with a #14 red rubber catheter through the mesentery defect and secured this to the skin with interrupted sutures of 3-0 nylon. The ileostomy was then created by opening the ileum transversely and then suturing the edges of the ileum to the edges of the skin in a full-thickness fashion. I used eversion sutures on the proximal end and did not use eversion on the distal end of the loop. An ostomy appliance was fashioned and applied. There were no complications. Blood loss was minimal throughout the operation. The patient tolerated the procedure well and was taken to recovery room in stable condition. Job ID: [id number]
== END 2019-09-17 17:22 | disposition home health service (06) | DRG 331 ==
LOC: SURG A 09-15 09:56 → SURG B 09-15 20:33
PROVIDERS: ADMIT Specialist; ATTEND Specialist
PROC: 0UT94ZZ Resection of Uterus, Percutaneous Endoscopic Approach (ICD-10-PCS; principal; 2019-09-15)
PROC: 0UT24ZZ Resection of Bilateral Ovaries, Percutaneous Endoscopic Approach (ICD-10-PCS; 2019-09-15)
PROC: 0UT74ZZ Resection of Bilateral Fallopian Tubes, Percutaneous Endoscopic Approach (ICD-10-PCS; 2019-09-15)
PROC: 8E0W4CZ Robotic Assisted Procedure of Trunk Region, Percutaneous Endoscopic Approach (ICD-10-PCS; 2019-09-15)
PROC: 0D1B4Z4 Bypass Ileum to Cutaneous, Percutaneous Endoscopic Approach (ICD-10-PCS; 2019-09-15)
PROC: 0DBP4ZZ Excision of Rectum, Percutaneous Endoscopic Approach (ICD-10-PCS; 2019-09-15)
DX: C20 Malignant neoplasm of rectum (principal); R10.2 Pelvic and perineal pain; D64.9 Anemia, unspecified; J30.2 Other seasonal allergic rhinitis; Z88.2 Allergy status to sulfonamides; Z88.8 Allergy status to other drugs, medicaments and biological substances
CPT/HCPCS: 36415; 36416; 80048; 85025; 86850; 86900; 86901; 88305; 88307; 88309; J0670; J0694; J1100; J1650; J1885; J2175; J2250; J2405; J2704; J3010; J3480; Q9968; S0020; S0028

== ENCOUNTER 2019-11-05 08:27 | Outpatient (CLI) | payer BC ==
--- NOTE | 2019-11-05 11:01 | RAD ---
Contrast enema for colostomy reversal HISTORY: Colon cancer with resection. FINDINGS: With an enema tube carefully inserted, Gastrografin contrast was gently instilled into the rectum. Initially, contrast remained within the rectum and sigmoid colon. The colon was retrogradely partially filled with Gastrografin contrast to the hepatic flexure. Images at the end of the fluoroscopic evaluation showed a small amount of contrast immediately to the right and superior to the surgical anastomosis. At the time of the fluoroscopy, this contrast was favored to be within a fold of the rectum. Postevacuation radiograph, however, shows this contrast to be outside of the lumen, extending superio rly and rightward from the surgical anastomosis. Leak of contrast was confirmed with subsequently performed CT pelvis. IMPRESSION : Small anastomotic leak extending superiorly and rightward from the rectal suture row. Findings were discussed with Dr. Rice at the time of the exam. Code CR.
--- NOTE | 2019-11-05 11:08 | CT ---
CT pelvis noncontrast HISTORY: Colon cancer. Anastomotic leak. FINDINGS: Contrast material within the colon and rectum from recent Gastrografin enema. Reflux into t he decompressed distal small bowel. Loop ileostomy right lower quadrant is noted. Extending superiorly and rightward from the surgical anastomosis is a contained collection of fluid t hat measures up to 2.0 cm length by 0.7 cm width. The neck at the leak is 0.5 cm diameter. Urinary bladder is decompressed. Degenerative changes of lower lumbar spine and hips. IMPRESSION : Contained leak from the rectal surgical anastomosis. Findings were discussed Dr. Rice at the time of exam Code CR.
[2019-11-05] MEDS ORDERED: MD-Gastroview 120 ML BOT ONE (13:46)
== END 2019-11-05 08:28 | disposition home or self-care (01) ==
LOC: RAD 08:27
PROVIDERS: ATTEND Specialist
DX: C20 Malignant neoplasm of rectum (principal); K91.89 Other postprocedural complications and disorders of digestive system
CPT/HCPCS: 72192; 74280; Q9963

== ENCOUNTER 2019-12-12 09:02 | Outpatient (CLI) | payer BC ==
--- NOTE | 2019-12-12 10:41 | RAD ---
Fluoroscopy: Contrast enema: 12/12/2019 HISTORY: 54-year-old female status post colostomy reversal. Follow-up an anastomotic leak. TECHNIQUE: Dr. Rice, the surgeon, placed the Nixon type catheter into the rectum, and inflated the balloon, t hen retracted to the level of the anal sphincter. Dr. Ray, the radiologist, injected Gastrografin under brief, intermittent fluoroscopy. Catheter was removed, and patient went to the restroom. Postev acuation AP and lateral views of the pelvis were obtained. FINDINGS: There is free flow of contrast from the anorectal junction to the descending colon. The field services director view de monstrates contrast material in the right hemicolon from prior study. The anastomotic leak that was demonstrated on 11/05/2019, is no longer demonstrated. A prominent diverticulum is noted in the rectum. Suture line is present in the lower rectum near the anus junction. IMPRESSION: No anastomotic leak.
== END 2019-12-12 09:03 | disposition home or self-care (01) ==
LOC: RAD 09:02
PROVIDERS: ATTEND Specialist
DX: Z48.815 Encounter for surgical aftercare following surgery on the digestive system (principal); Z93.2 Ileostomy status
CPT/HCPCS: 74280

== ENCOUNTER 2019-12-18 08:06 | Outpatient (CLI) | payer BC, OTHER ==
[2019-12-18 14:13] LABS: #Eosinphils 0.2 thou/uL (0.0-0.7); #Lymphocytes 0.6 thou/uL (1.20-3.40); #Monocytes 0.3 thou/uL (0.11-0.59); #Neutrophils 2.7 thou/uL (1.40-6.50); %Basophils 0.9 % (0.0-1.0); %Eosinophils 4.8 % (0.0-10.0); %Lymphocytes 14.9 % (21.0-51.0); %Monocytes 8.7 % (0.0-10.0); %Neutrophils 70.7 % (42.0-75.0); Hemoglobin 13.1 g/dL (12.0-16.0); Mean Corpuscular HGB CONC 34.6 g/dL (32.0-36.0); Mean Corpuscular Hemoglobin 32.7 pg (27.0-31.0); Mean Corpuscular Volume 94.5 fL (78.0-98.0); Mean Platelet Volume 6.6 fL (7.4-10.4); Platelet Count 241 thou/uL (130-400); RBC Distribution Width 12.7 % (11.5-14.5); Red Blood Cell (RBC) Count 3.99 mill/uL (4.20-5.40); White Blood Cell (WBC) Count 3.9 thou/uL (4.8-10.8)
[2019-12-18 14:26] LABS: Anion Gap 8 mmol/L (10-20); BUN (Urea Nitrogen) 11 mg/dL (9.8-20.1); Calc. Creatinine Clearance 0 mL/min (70-130); Calcium 9.8 mg/dL (7.8-10.44); Carbon Dioxide 27 mmol/L (22-29); Chloride 107 mmol/L (98-107); Estimated GFR-MDRD 75; Glucose 97 mg/dL (70-105); Potassium 3.8 mmol/L (3.5-5.1); Sodium 138 mmol/L (136-145)
[2019-12-18 18:57] LABS: SARS-CoV-2 MS2 Positive; SARS-CoV-2 N Gene Negative; SARS-CoV-2 S Gene Negative; SARS-CoV-2 by NAA Not Detected (NotDetected); SARS-CoV-2 orf1ab Negative
== END 2019-12-18 08:07 | disposition home or self-care (01) ==
LOC: LABBT 08:06
PROVIDERS: ATTEND Specialist
DX: Z01.812 Encounter for preprocedural laboratory examination (principal); Z20.828 Contact with and (suspected) exposure to other viral communicable diseases; C20 Malignant neoplasm of rectum; Z93.2 Ileostomy status
CPT/HCPCS: 80048; 85025; 87635; U0003

== ENCOUNTER 2019-12-18 12:00 | Inpatient (IN) | payer BC ==
[2019-12-22 10:15] VITALS: BMI 18.2
[2019-12-23] MEDS ORDERED: Ketorolac Tromethamine 30 MG/ML VIAL ONE (08:35)
[2019-12-23] MEDS ORDERED: cefOXitin Sodium/Dextrose 2 GM/50 ML BAG ONE (08:35)
[2019-12-23] MEDS ORDERED: Acetaminophen 500 MG TAB ONE ×2 (09:06→09:08)
[2019-12-23] MEDS ORDERED: Metoclopramide HCl 10 MG/2 ML VIAL ONE (09:11)
[2019-12-23] MEDS ORDERED: Rocuronium Bromide 10 MG/ML (10ML VIAL) ONE (09:11)
[2019-12-23] MEDS ORDERED: Dexamethasone 20 MG/5 ML VIAL ONE (09:11)
[2019-12-23] MEDS ORDERED: Lidocaine 1% PF 5 ML VIAL ONE (09:11)
[2019-12-23] MEDS ORDERED: PHENYLEPHRINE-NS 100 MCG/ML 10 ML SYRINGE ONE (09:11)
[2019-12-23] MEDS ORDERED: Glycopyrrolate 0.2 MG/ML 5 ML SYRINGE ONE (09:11)
[2019-12-23] MEDS ORDERED: Ondansetron PF 4 MG/2 ML Vial ONE ×2 (09:11→15:23)
[2019-12-23] MEDS ORDERED: PROPOFOL 200 MG/20 ML VIAL ONE (09:11)
[2019-12-23] MEDS ORDERED: Bupivacaine/Epinephrine 0.25% 30 ML VIAL ONE (10:24)
[2019-12-23] MEDS ORDERED: Fentanyl 100 MCG/2 ML VIAL ONE ×3 (10:27→15:13)
[2019-12-23] MEDS ORDERED: Famotidine/PF 20 mg/2ml Vial ONE (10:27)
[2019-12-23] MEDS ORDERED: hydrALAZINE 20 MG/ML VIAL SLOW IVP PRN (12:09)
[2019-12-23] MEDS ORDERED: Morphine 4 MG/ML VIAL SLOW IVP PRN (12:09)
[2019-12-23] MEDS ORDERED: Promethazine HCl 25 MG/ML VIAL IM PRN ×2 (12:09→12:18)
[2019-12-23] MEDS ORDERED: Morphine 2 MG/ML VIAL SLOW IVP PRN (12:09)
[2019-12-23] MEDS ORDERED: Ondansetron HCl/PF 4 MG/2 ML Vial IVP PRN (12:18)
[2019-12-23] MEDS ORDERED: Promethazine HCl 25 MG/ML VIAL SLOW IVP PRN (12:18)
[2019-12-23] MEDS ORDERED: Promethazine HCl 25 MG/ML VIAL ONE (15:52)
--- NOTE | 2019-12-23 18:02 | OP ---
DATE OF PROCEDURE: 12/23/2019 PREOPERATIVE DIAGNOSIS: Ileostomy status. POSTOPERATIVE DIAGNOSIS: Ileostomy status. PROCEDURE PERFORMED: Ileostomy closure with short-segment resection. ANESTHESIA: General endotracheal. INDICATIONS FOR PROCEDURE: The patient is a 54-year-old white female. She has a history of rectal cancer for which she underwent an ultra-low anterior resection with proximal diverting ileostomy. The ileostomy is a loop ileostomy. She is taken to the operating room at this time for ostomy closure as a recent contrast study showed no evidence of a leak at her colorectal anastomosis. DESCRIPTION OF OPERATION: Informed consent was obtained. Patient was taken to the operating room, where general endotracheal anesthesia obtained with patient in supine position. The ostomy was closed transversely with a running locking suture of 0 silk. Local anesthetic was infiltrated using 0.25% Marcaine with epinephrine. A narrow elliptical incision was created around the ostomy closure. Dissection was then carried deeply directly on the bowel wall. Dissection was carried down to the fascia which was dissected circumferentially. The bowel was completely mobilized from the muscular fascia and was easily dissectible down into the abdominal cavity. There were no adhesions to the anterior abdominal wall. I then prepared for the anastomosis using segregated instruments. The area was tiled off. A stay suture was placed and a double stapled anastomosis was created using the [place] 75 stapler. There was no enteric fluid that drained into the operative field. Immediately after the bowel was completely closed, the instruments being used as well as cautery and suction were removed from the field. Gloves were changed. Operation was continued. The anastomosis was buttressed with several interrupted sutures of 3-0 silk. The mesenteric defect was tiny and was not separately closed. The bowel was then passed down to the abdominal cavity. The fascia was then closed with a running suture of #1 PDS, with one layer on the posterior fascia and the second layer on the anterior/external oblique fascia. The wound was copiously irrigated with 1.5 L of saline. All irrigant was aspirated. Deep layers of the wound were closed with interrupted sutures of 3-0 Vicryl, a couple of which also incorporated bites of the anterior fascia. The skin edges were closed with interrupted skin chelsea. Two Telfa gauze radha were placed within the wound, one extending medially and one laterally. Dry gauze dressing was placed externally. There were no complications. Blood loss was negligible. The patient tolerated the procedure well and was taken to recovery in stable condition. Job ID: [id number]
[2019-12-23] MEDS: D5 1/2 NS w/20 mEq KCL 1,000 ML IV SCH ×2 (18:26→21:48)
[2019-12-23] MEDS: Ketorolac Tromethamine 30 MG/ML VIAL IVP SCH ×2 (18:26→23:56)
[2019-12-23] MEDS: Famotidine 20 MG TAB PO SCH (20:18)
[2019-12-23] MEDS: Enoxaparin Sodium 40 MG/0.4 ML SYRINGE SC SCH (20:18)
[2019-12-23] MEDS: Famotidine/PF 20 mg/2ml Vial SLOW IVP SCH (20:19)
[2019-12-23] MEDS: Ondansetron PF 4 MG/2 ML Vial IVP PRN (21:45)
[2019-12-23] MEDS ORDERED: Sodium Chloride 0.9% 500 ML IV SCH (21:45)
--- NOTE | 2019-12-23 23:01 | PDOC.GSPN ---
Surgery Progress Note: Subj - Subjective Narrative: Patient is a 54-year-old female with prior ultra-low anterior resection of rectal cancer with proximal diverting ileostomy who was admitted s/p ileostomy reversal and short-segment resection, hospital day 1. She reports feeling well this morning. She reports tenderness at the incision site, maxing out at 7/10, well-controlled with prn morphine. Post-op, she reported nausea and 1 episode of vomiting, but this has since resolved. Also reports lack of appetite associated with nausea so hasn't eaten anything. Patient will attempt clear liquid diet today. No overnight events or other complaints. + ambulation. Good urination. - BM yesterday and this morning, but + belching x 2. No fever, SOB. Surgery Progress Note: Obj - Vital signs Vital signs: Vital Signs - Most Recent Temp Pulse Resp BP Pulse Ox 98.1 F 93 18 116/64 98 12/23/19 19:59 12/23/19 19:59 12/23/19 19:59 12/23/19 19:59 12/23/19 19:59 Afebrile, hypotensive avg. 95/55 - Physical Exam General: no distress, no pain Cardiovascular: regular rate and rhythm Abdomen: soft, nondistended, decreased bowel sounds, appropriately tender Wound: dressing clean,dry,intact Surgery Progress Note: Results - Labs Result Diagrams: 12/24/19 04:49 12/24/19 04:49 Lab results: Anemia: Hgb 10.1, continue to monitor for trends Surgery Progress Note: A/P - Plan Plan: 54-year-old female s/p ileostomy reversal. Patient is doing well this morning. Pain: well-controlled with prn morphine Diet: continue clear liquids, patient was encouraged to eat, monitor tolerance Prophylaxis: pt encouraged to continue ambulation and spirometer Continue to monitor patient for bowel function, d/c IV fluids due to appropriate urination, monitor low BPs.
[2019-12-24] MEDS: Ketorolac Tromethamine 30 MG/ML VIAL IVP SCH ×4 (05:18→23:00)
[2019-12-24] MEDS: Ondansetron PF 4 MG/2 ML Vial IVP PRN (05:24)
[2019-12-24] MEDS: HYDROcodone/Acetaminophen 7.5/325 mg Tablet PO PRN ×2 (05:24→23:00)
[2019-12-24 05:49] LABS: #Lymphocytes 0.6 thou/uL (1.20-3.40); #Monocytes 0.5 thou/uL (0.11-0.59); #Neutrophils 4.5 thou/uL (1.40-6.50); %Basophils 0.2 % (0.0-1.0); %Eosinophils 0.3 % (0.0-10.0); %Lymphocytes 9.9 % (21.0-51.0); %Monocytes 9.2 % (0.0-10.0); %Neutrophils 80.3 % (42.0-75.0); Hemoglobin 10.1 g/dL (12.0-16.0); Mean Corpuscular HGB CONC 34.4 g/dL (32.0-36.0); Mean Corpuscular Volume 96.1 fL (78.0-98.0); Mean Platelet Volume 6.5 fL (7.4-10.4); Platelet Count 185 thou/uL (130-400); RBC Distribution Width 12.7 % (11.5-14.5); Red Blood Cell (RBC) Count 3.06 mill/uL (4.20-5.40); White Blood Cell (WBC) Count 5.7 thou/uL (4.8-10.8)
[2019-12-24 06:06] LABS: Anion Gap 11 mmol/L (10-20); BUN (Urea Nitrogen) 11 mg/dL (9.8-20.1); Calc. Creatinine Clearance 67 mL/min (70-130); Calcium 8.7 mg/dL (7.8-10.44); Carbon Dioxide 20 mmol/L (22-29); Chloride 110 mmol/L (98-107); Estimated GFR-MDRD 88; Glucose 99 mg/dL (70-105); Potassium 3.7 mmol/L (3.5-5.1); Sodium 137 mmol/L (136-145)
[2019-12-24] MEDS: Famotidine 20 MG TAB PO SCH ×2 (08:36→20:16)
[2019-12-24] MEDS: Famotidine/PF 20 mg/2ml Vial SLOW IVP SCH ×2 (08:37→20:16)
[2019-12-24] MEDS: Loratadine 10 MG TAB PO SCH (08:37)
[2019-12-24] MEDS ORDERED: Prevnar 13-Val Conj/PF 0.5 ML SYRINGE IM ONE (09:00)
[2019-12-24] MEDS ORDERED: FLU VACC QS2020-21(6MOS UP)/PF 60 MCG/0.5 ML SYRINGE IM ONE (09:00)
[2019-12-24] MEDS: D5 1/2 NS w/20 mEq KCL 1,000 ML IV SCH ×3 (11:56→20:16)
[2019-12-24] MEDS: Enoxaparin Sodium 40 MG/0.4 ML SYRINGE SC SCH (20:16)
[2019-12-25] MEDS ORDERED: D5 1/2 NS w/20 mEq KCL 1,000 ML IV SCH (04:00)
[2019-12-25] MEDS: Ketorolac Tromethamine 30 MG/ML VIAL IVP SCH ×2 (05:28→12:48)
[2019-12-25 05:36] LABS: #Eosinphils 0.2 thou/uL (0.0-0.7); #Lymphocytes 0.6 thou/uL (1.20-3.40); #Monocytes 0.5 thou/uL (0.11-0.59); #Neutrophils 3.4 thou/uL (1.40-6.50); %Eosinophils 3.3 % (0.0-10.0); %Lymphocytes 13.3 % (21.0-51.0); %Monocytes 10.2 % (0.0-10.0); %Neutrophils 73.3 % (42.0-75.0); Hemoglobin 10.2 g/dL (12.0-16.0); Mean Corpuscular HGB CONC 34.2 g/dL (32.0-36.0); Mean Corpuscular Hemoglobin 33.1 pg (27.0-31.0); Mean Corpuscular Volume 96.7 fL (78.0-98.0); Mean Platelet Volume 6.3 fL (7.4-10.4); Platelet Count 164 thou/uL (130-400); RBC Distribution Width 12.9 % (11.5-14.5); Red Blood Cell (RBC) Count 3.09 mill/uL (4.20-5.40); White Blood Cell (WBC) Count 4.6 thou/uL (4.8-10.8)
--- NOTE | 2019-12-25 06:56 | PDOC.GSPN ---
Surgery Progress Note: Subj - Subjective Narrative: Ms. Trejo is a 54 year old female POD 2 ileostomy closure with short segment resection. She was laying in bed this morning at the time of the visit and said that she is feeling much better than yesterday. She was able to ambulate a few times yesterday and plans on talking walks today too. She had 8/10 overnight that was manageable with pain medication. She had 1/10 pain this morning and attributed most of it to soreness around the incision sites. She has been able to void without problems and has good PO fluid intake. She was able to tolerate hald a bottle of Ensure yesterday and didn't drink the rest because of its smell. She has had no problems with the rest of her clear liquid diet. She denies any nausea or vomiting. She has not yet had a bowel movement but has been passing gas. She has been using her incentive spirometry. She denies any shortness of breath, chest pain, fevers, chills, palpitations, and headaches. Surgery Progress Note: Obj - Vital signs Vital signs: Vital Signs - Most Recent Temp Pulse Resp BP Pulse Ox 97.7 F 87 19 99/64 97 12/25/19 03:16 12/25/19 03:16 12/25/19 03:16 12/25/19 03:16 12/25/19 03:49 - Physical Exam General: no distress Cardiovascular: regular rate and rhythm Respiratory: clear to auscultation, normal respiratory effort, breath sounds present Abdomen: soft, nondistended, positive bowel sounds, appropriately tender (around incision sites) Wound: dressing clean,dry,intact Surgery Progress Note: Results - Labs Result Diagrams: 12/25/19 05:27 12/24/19 04:49 Lab results: Laboratory Results - last 12 hr 12/25/19 05:27 WBC 4.6 L RBC 3.09 L Hgb 10.2 L Hct 29.9 L MCV 96.7 MCH 33.1 H MCHC 34.2 RDW 12.9 Plt Count 164 MPV 6.3 L Neutrophils % 73.3 Lymphocytes % 13.3 L Monocytes % 10.2 H Eosinophils % 3.3 Basophils % 0.0 Neutrophils # 3.4 Lymphocytes # 0.6 L Monocytes # 0.5 Eosinophils # 0.2 Basophils # 0.0 Surgery Progress Note: A/P - Plan Plan: Patient doing well overall; waiting for bowel function to resume. Continue pain management with Toradol and hydrocodone. Progress to full liquid diet since she was able to tolerate Ensure clear liquid diet yesterday. Encouraged ambulation and incentive spirometry. Stop IV fluids since the patient has good PO intake. Anemia stable since yesterday.
[2019-12-25] MEDS: Loratadine 10 MG TAB PO SCH (08:27)
[2019-12-25] MEDS: Famotidine 20 MG TAB PO SCH (08:27)
[2019-12-25] MEDS ORDERED: Loratadine 10 MG TAB PO SCH (09:00)
[2019-12-25 13:02] VITALS: BP 99/62; TEMP 98.6
== END 2019-12-25 13:30 | disposition home or self-care (01) | DRG 331 ==
LOC: SURG A 12-23 08:19 → SJJU 12-23 16:45
PROVIDERS: ADMIT Specialist; ATTEND Specialist
PROC: 0DQB0ZZ Repair Ileum, Open Approach (ICD-10-PCS; principal; 2019-12-23)
DX: Z43.2 Encounter for attention to ileostomy (principal); Z85.048 Personal history of other malignant neoplasm of rectum, rectosigmoid junction, and anus
CPT/HCPCS: 36415; 80048; 85025; 88307; J0694; J1100; J1650; J1885; J2405; J2550; J2704; J2765; J3010; J3480; S0028

== ENCOUNTER 2021-01-04 08:14 | Outpatient (CLI) | payer OTHER ==
[2021-01-04] MEDS ORDERED: Iopamidol-370 76% 500 ML 1 ML ONE (10:27)
== END 2021-01-04 08:15 | disposition home or self-care (01) ==
LOC: BICCT 08:14
PROVIDERS: ATTEND Internal Medicine Hematology & Oncology
DX: Z08 Encounter for follow-up examination after completed treatment for malignant neoplasm (principal); J43.9 Emphysema, unspecified; R91.8 Other nonspecific abnormal finding of lung field; Z90.49 Acquired absence of other specified parts of digestive tract; Z85.048 Personal history of other malignant neoplasm of rectum, rectosigmoid junction, and anus
CPT/HCPCS: 71260; 74177; Q9967

== ENCOUNTER 2021-06-30 14:28 | Outpatient (CLI) | payer OTHER | END 2021-06-30 14:29 | disposition home or self-care (01) | LOC: BICMAMMO 14:28 | PROVIDERS: ATTEND Physician Assistant | DX: Z12.31 Encounter for screening mammogram for malignant neoplasm of breast (principal); Z85.00 Personal history of malignant neoplasm of unspecified digestive organ | CPT/HCPCS: 77063; 77067 ==

== ENCOUNTER 2021-11-17 08:36 | Outpatient (CLI) | payer MEDICARE, OTHER ==
[2021-11-17] MEDS ORDERED: Iopamidol-370 76% 500 ML 1 ML ONE (14:33)
== END 2021-11-17 08:37 | disposition home or self-care (01) ==
LOC: BICCT 08:36
PROVIDERS: ATTEND Internal Medicine Hematology & Oncology
DX: C20 Malignant neoplasm of rectum (principal); R91.8 Other nonspecific abnormal finding of lung field
CPT/HCPCS: 71260; 74177; Q9967

== ENCOUNTER 2022-05-19 09:35 | Outpatient (CLI) | payer MEDICARE, OTHER | END 2022-05-19 09:36 | disposition home or self-care (01) | LOC: BICCT 09:35 | PROVIDERS: ATTEND Internal Medicine Hematology & Oncology | DX: C20 Malignant neoplasm of rectum (principal); R91.8 Other nonspecific abnormal finding of lung field | CPT/HCPCS: 71260; 74177; 82565 ==

== ENCOUNTER 2022-11-07 09:35 | Outpatient (CLI) | payer MEDICARE, OTHER ==
[2022-11-07] MEDS ORDERED: Iopamidol-370 76% 500 ML MDV (1 ML CHARGE) ONE (10:55)
== END 2022-11-07 09:36 | disposition home or self-care (01) ==
LOC: BICCT 09:35
PROVIDERS: ATTEND Internal Medicine Hematology & Oncology
DX: C20 Malignant neoplasm of rectum (principal); R91.8 Other nonspecific abnormal finding of lung field; F17.211 Nicotine dependence, cigarettes, in remission
CPT/HCPCS: 71260; 74177; Q9967

== ENCOUNTER 2023-12-11 09:31 | Outpatient (CLI) | payer MEDICARE ==
[2023-12-11] MEDS ORDERED: Iopamidol 370 76% 100 ML VIAL ONE (10:41)
== END 2023-12-11 09:32 | disposition home or self-care (01) ==
LOC: BICCT 09:31
PROVIDERS: ATTEND Internal Medicine Hematology & Oncology
DX: C20 Malignant neoplasm of rectum (principal); R91.8 Other nonspecific abnormal finding of lung field
CPT/HCPCS: 71260; 74177; Q9967

== ENCOUNTER 2024-02-07 14:18 | Outpatient (CLI) | payer MEDICARE | END 2024-02-07 14:19 | disposition home or self-care (01) | LOC: BICMAMMO 14:18 | PROVIDERS: ATTEND Student in an Organized Health Care Education/Training Program | DX: Z12.31 Encounter for screening mammogram for malignant neoplasm of breast (principal); Z85.00 Personal history of malignant neoplasm of unspecified digestive organ | CPT/HCPCS: 77063; 77067 ==

== ENCOUNTER 2024-02-19 11:56 | Outpatient (CLI) | payer MEDICARE | END 2024-02-19 11:57 | disposition home or self-care (01) | LOC: SCSRAD 11:56 | PROVIDERS: ATTEND Student in an Organized Health Care Education/Training Program | DX: M25.551 Pain in right hip (principal); M25.552 Pain in left hip; M16.12 Unilateral primary osteoarthritis, left hip ==

== ENCOUNTER 2024-12-09 13:05 | Outpatient (CLI) | payer MEDICARE ==
[~2024-12-09 13:05] MED LIST changes: -Gadobenate Dimeglumine 529 MG/1 ML (20ML VIAL) ONE; +Iopamidol 370 76% 100 ML VIAL ONE
[2024-12-09 13:36] LABS: Estimated GFR - POC 64.0
== END 2024-12-09 13:06 | disposition home or self-care (01) ==
LOC: CT 13:05
PROVIDERS: ATTEND Internal Medicine Hematology & Oncology
DX: C20 Malignant neoplasm of rectum (principal); F17.211 Nicotine dependence, cigarettes, in remission; R60.9 Edema, unspecified
CPT/HCPCS: 71260; 74177; 82565; Q9967